=== PATIENT | male | born 1965 | race Caucasian/White ===

== ENCOUNTER 2016-07-30 12:28 | Emergency (ER) | payer MEDICARE, OTHER ==
[2016-07-30 12:11] LABS: BASOPHILS 0.1 %; BASOPHILS ABSOLUTE 0.01 10/3/uL (0.0-0.16); EOSINOPHILS 1.9 %; EOSINOPHILS ABSOLUTE 0.15 10/3/uL (0.0-0.53); ER CBC TAT 0 Hrs 12 Mins; HEMATOCRIT 33.6 % (40.0-51.0); HEMOGLOBIN 10.8 g/dL (13.6-17.8); IMMATURE GRANULOCYTES 0.3 %; IMMATURE GRANULOCYTES ABSOLUTE 0.02 10/3/uL (0.0-0.11); LYMPHOCYTES 25.6 %; LYMPHOCYTES ABSOLUTE 1.97 10/3/uL (0.67-4.30); MEAN CORPUS HGB CONC 32.1 g/dL (32.0-36.0); MEAN CORPUSCULAR HEMOGLOB 27.4 pg (26.0-34.0); MEAN CORPUSCULAR VOLUME 85.3 fL (80-100); MEAN PLATELET VOLUME 9.8 fL (9.2-13.0); MONOCYTES 6.1 %; MONOCYTES ABSOLUTE 0.47 10/3/uL (0.21-1.20); NEUTROPHILS ABSOLUTE 5.09 10/3/uL (2.02-8.40); PLATELET COUNT 201 10/3/uL (150-400); RBC DISTRIBUTION WIDTH 13.8 % (12.0-16.0); RED CELL COUNT 3.94 10/6/uL (4.7-6.1); WHITE BLOOD CELLS 7.7 10/3/uL (4.5-10.5)
[2016-07-30 12:12] LABS: MANUAL DIFF NO %
[2016-07-30 12:17] LABS: INTERNATIONAL NORMAL RATI 1.9 UNITS (-); PARTIAL THROMBO TIME 39.6 SEC (22.5-37.2)
[2016-07-30 12:18] LABS: PROTIME (NOT ORD) 21.8 SEC (12.0-14.5)
[2016-07-30 12:28] LABS: BUN (BLOOD UREA NITROGEN) 9 MG/DL (6-23); CHEST PAIN PROFILE TAT 0 Hrs 29 Mins; CHLORIDE, SERUM 105 MMOL/L (96-112); CO2 (CARBON DIOXIDE) 30 MMOL/L (24-34); CREATININE 0.77 MG/DL (0.70-1.30); GFR AFRICAN AMERICAN 121 ML/MIN (>=60); GFR NON AFRICAN AMERICAN 104 ML/MIN (>=60); POTASSIUM, SERUM 3.5 MMOL/L (3.5-5.3); SODIUM, SERUM 143 MMOL/L (135-148); TROPONIN I <0.02 NG/ML (<0.05)
[~2016-07-30 12:28] MED LIST: ALEVE220 MG PO; AMIT75 PO; AMITRIPTYLIN150 MG PO; ASAB PO; BYSTOLIC2.5 MG PO; CELEXA20 PO; CELEXA40 MG PO; COUMADIN4 MG PO; COZ50 PO; DIL2TAB PO; DRAMAMINE25 MG PO; DUONEB INH; EFFIENT10 PO; FLEX PO; FLOMAX4 PO; HALF81 PO; HCTZ12.5 PO; IMDUR30 PO; K-TABS10 MEQ PO; LIPITOR40 PO; MAGNESIUM OTC PO; MAGOX4 PO; MAX25 PO; MCZ125 PO; MCZ25 PO; MEDROLPAK4 PO; NEUR300 PO; NEUR400 PO; NITROQUICK0.4 MG SL; NITROSTAT0.4 MG SL; PRAVAC PO; PRILOSEC40 MG PO; PRIN20 PO; PROTONIX PO; RAN500 PO; SAW PALMETT2 PO; SAW PALMETTO; SKELAXIN8 PO; SOMATAB PO; SPIRIVA INH; SUCR PO; SUPER B COMP OR; SUPER B COMP PO; SUPER B-100 PO; SYMBICORT 160/41 INH INH; SYMBICORT 80/4.1 INH INH; SYMBICORT PO; TOPXL50 PO; TRICOR145 PO; VIT C; VITAMIN B PO; VITAMIN B-121000 MC1 SL; VITC500 PO; VITE PO; XARELTO20 MG PO; ZANTAC150 MG PO; ZOL100 PO
[2016-07-30 12:30] LABS: GLUCOSE, SERUM 127 MG/DL (60-99)
[2016-08-19] MEDS ORDERED: ASMANEX100 INH (17:07)
[2016-08-19] MEDS ORDERED: AMITRIPTYLIN150 MG PO (17:07)
[2016-08-19] MEDS ORDERED: HALF81 PO (17:08)
[2016-08-19] MEDS ORDERED: ATV1 PO (17:08)
[2016-08-19] MEDS ORDERED: CELEXA40 MG PO (17:09)
[2016-08-19] MEDS ORDERED: DIL4TAB PO (17:10)
[2016-08-19] MEDS ORDERED: DSS PO (17:10)
[2016-08-19] MEDS ORDERED: FLONASE NAS (17:11)
[2016-08-19] MEDS ORDERED: FLOMAX4 PO (17:11)
[2016-08-19] MEDS ORDERED: L40 PO (17:12)
[2016-08-19] MEDS ORDERED: LIPITOR40 PO (17:12)
[2016-08-19] MEDS ORDERED: CONSTULOSE PO (17:12)
[2016-08-19] MEDS ORDERED: PRIN20 PO (17:13)
[2016-08-19] MEDS ORDERED: MAG OXIDE250 MG PO (17:13)
[2016-08-19] MEDS ORDERED: MCZ25 PO (17:14)
[2016-08-19] MEDS ORDERED: MORPHINE 20MG/ML PO (17:15)
[2016-08-19] MEDS ORDERED: NITROSTAT0.4 MG SL (17:16)
[2016-08-19] MEDS ORDERED: NEUR400 PO (17:16)
[2016-08-19] MEDS ORDERED: NORCO1 TAB PO (17:17)
[2016-08-19] MEDS ORDERED: PR25 PO (17:17)
[2016-08-19] MEDS ORDERED: DITRO5 PO (17:17)
[2016-08-19] MEDS ORDERED: PROTONIX PO (17:18)
[2016-08-19] MEDS ORDERED: VITC500 PO (17:19)
[2016-08-19] MEDS ORDERED: VITE PO (17:19)
[2016-08-19] MEDS ORDERED: XARELTO20 MG PO (17:19)
[2016-08-19] MEDS ORDERED: SPIRIVA INH (17:19)
[2016-08-19] MEDS ORDERED: SUPER B COMP PO (17:19)
[2016-08-19] MEDS ORDERED: ZOFRAN8 PO (17:20)
[2016-08-19] MEDS ORDERED: ZYRTEC ALLGY10 MG PO (17:20)
[2016-08-19] MEDS ORDERED: ALEVE220 MG PO (17:21)
== END 2016-07-30 15:30 | disposition home or self-care (01) ==
LOC: ER 12:28
PROVIDERS: Hospitalist
DX: R55 Syncope and collapse (principal); J45.909 Unspecified asthma, uncomplicated; Z95.0 Presence of cardiac pacemaker; Z88.5 Allergy status to narcotic agent; Z91.09 Other allergy status, other than to drugs and biological substances; Z91.018 Allergy to other foods; Z79.82 Long term (current) use of aspirin; Z79.899 Other long term (current) drug therapy
CPT/HCPCS: 71020; 80048; 83735; 84484; 85025; 85610; 85730; 93005; 96374; 99285; J2405